=== PATIENT | male | born 2000 | race Two or more races ===

== ENCOUNTER 2025-06-10 21:54 | Emergency (ER) | payer SELFPAY ==
[2025-06-10 21:55] VITALS: BMI 36.5
[2025-06-10 22:02] VITALS: BP 130/76; PULSE 66; RESP 18; TEMP 37.1; O2SAT 97
--- NOTE | 2025-06-10 22:36 | PD.EDDENTL ---
ED Dental RME/HPI General Chief complaint: Dental/Oral/Throat Stated complaint: RIGHT UPPER TOOTH PAIN Time Seen by Provider: 06/10/25 22:00 Arrival date/time: 06/10/25 21:54 RME / HPI RME / HPI Narrative: 24-year-old male presents to the ED with a complaint of right upper dental pain ongoing for the past 3 weeks. He was seen by a dentist and told he needs a root canal. He was prescribed ibuprofen but it is not helping at this point in time. The pain has become progressively worse since his appointment. He is unable to get in for a root canal until after Thursday due to his insurance not taking effect until then. He denies any fever chills, nausea or vomiting. He has no allergies to medications. Related Data Previous Rx's ?Medication ?Instructions ?Recorded amoxicillin 875 mg-potassium 1 tab PO BID #20 tabs 06/10/25 clavulanate 125 mg tablet Allergies Allergy/AdvReac Type Severity Reaction Status Date / Time No Known Allergies Allergy Verified 06/10/25 21:57 Review of Systems Review of Systems Systems Reviewed: All systems reviewed, normal except as documented Past Medical History Social History SMOKING STATUS: Never smoker ED Exam Narrative Physical exam: A&O, afebrile and non-toxic appearing 24-year-old male, no acute distress. All teeth appear in good repair. He has percussive tenderness to tooth #2 and 3. Lung are clear, RRR, Abdomen is non-distended. Moves all extremities well. Course Orders Category Date Time Status Amoxicillin/Pot Clav 875 [Augmentin 875] Med 06/10/25 22:48 Once 1 tab PO X1 ONE HYDROcodone/APAP 10/325 [[place] 10/325] Med 06/10/25 22:48 Once 1 tab PO X1 ONE Ketorolac Inj [Toradol Inj] Med 06/10/25 22:48 Once 30 mg IM X1 ONE Vital Signs Vital signs: Vital Signs Temperature 98.8 F 06/10/25 22:02 Pulse Rate 66 06/10/25 22:02 Respiratory Rate 18 06/10/25 22:02 Blood Pressure 130/76 06/10/25 22:02 Pulse Oximetry (%) 97 06/10/25 22:02 Oxygen Delivery Method Room Air 06/10/25 22:02 Discharge Plan Plan Patient Disposition: HOME (Self Care) Discharge Disposition comment: Stable Prescriptions/Referrals Prescriptions/Med Rec: New amoxicillin-pot clavulanate 875-125 mg tablet 1 tab PO BID Qty: 20 0RF Problem List Clinical Impression: Toothache, Dental abscess Patient/Caregiver Discharge Instructions Education Materials: Dental Abscess, ED Dental Pain Additional Instructions: Take the antibiotics as prescribed and complete the course even though you may be feeling better. Follow-up with your primary care physician and dentist in 24 to 48 hours. Return to the ED for any new or worsening symptoms. Print Language: Welsh Stand Alone Forms: Hallie Award Info., Patient Portal Info Letter PA/[employer] Supervising Physician PA/[employer] Supervising Physician: Dr. Priest
[2025-06-10] MEDS: AMOXICILLIN/POT CLAV 875 TABLET 1 TAB PO (23:06)
[2025-06-10] MEDS: KETOROLAC INJ 60 MG/2 ML VIAL 30 MG IM (23:07)
== END 2025-06-10 23:12 | disposition home or self-care (01) ==
LOC: SERX 22:56
PROVIDERS: Emergency Provider Emergency Medicine
DX: K04.7 Periapical abscess without sinus (principal)
CPT/HCPCS: 96372; 99283; J1885; A9270